=== PATIENT | male | born 1945 | race Caucasian/White ===

== ENCOUNTER 2016-10-17 09:10 | Day surgery (SDC) | payer MEDICARE, OTHER ==
[2016-10-12 18:21] LABS: HEMATOCRIT 46.6 % (40.0-51.0); HEMOGLOBIN 15.6 g/dL (13.6-17.8)
[2016-10-12 18:42] LABS: A/G RATIO 1.7 (0.7-1.9); ALBUMIN 4.4 G/DL (3.5-5.0); ALKALINE PHOSPHATASE 88 U/L (45-117); BUN (BLOOD UREA NITROGEN) 14 MG/DL (6-23); CHLORIDE, SERUM 108 MMOL/L (96-112); CO2 (CARBON DIOXIDE) 27 MMOL/L (24-34); CREATININE 1.31 MG/DL (0.70-1.30); GFR AFRICAN AMERICAN 63 ML/MIN (>=60); GFR NON AFRICAN AMERICAN 54 ML/MIN (>=60); GLOBULIN 2.6 G/DL (2.5-4.1); GLUCOSE, SERUM 83 MG/DL (60-99); POTASSIUM, SERUM 4.4 MMOL/L (3.5-5.3); SGOT(AST) 36 U/L (5-40); SGPT(ALT) 36 U/L (5-65); SODIUM, SERUM 142 MMOL/L (135-148); TOTAL BILIRUBIN 0.7 MG/DL (0-1.2)
--- NOTE | ~2016-10-17 | OP ---
Record Of Operation [facility] [address] [place]. [address] NAME: EDELMIRA BOSTON : 45 STATUS : [facility]#: [id number] AGE: 71 ADM/REG DATE : 10/17/16 MR#: [id number] REPORT SERV DATE: 10/19/16 DICTATED BY: ANTONIO CHUA DATE: 10/19/16 REPORT STATUS : Draft TRANSCRIBED BY: MODL DATE: 10/19/16 DATE OF PROCEDURE: 10/17/2016 PREOPERATIVE DIAGNOSES: 1. Recurrent direct and indirect right inguinal hernia. 2. Left indirect and direct inguinal hernia. PROCEDURES: 1. Laparoscopic reduction and mesh patch repair of left inguinal hernia. 2. Attempted laparoscopic followed by open repair of right inguinal hernia. DESCRIPTION OF OPERATIVE PROCEDURE: The patient was brought to the operating suite, placed in supine position, underwent satisfactory general endotracheal anesthesia without incident. The skin of the abdomen was scrubbed, prepped, and draped in usual sterile fashion. 0.5% Marcaine with epinephrine was utilized as supplemental local anesthesia at intended trocar sites. Initially, an infraumbilical incision was performed dissecting through skin and subcutaneous tissue to the umbilical fascia. Inferolateral retraction to the left exposed the medial aspect of the left anterior rectus sheath. This was incised longitudinally and the rectus muscle was identified and retracted laterally exposing the left posterior rectus sheath. A preperitoneal dissection balloon was inserted posterior to the left rectus muscle to the level of pubic tubercle. It was then insufflated under direct camera visualization creating a preperitoneal dissection plane predominantly on the left and partially on the right. The patient had previously had a laparoscopic right inguinal hernia repair using a MINNIE approach in [place], [place] about 15 or 20 years ago. After completion a preperitoneal dissection on the left, the dissection balloon was replaced with a structural balloon and CO2 was insufflated into the preperitoneal space. Two additional 5 mm trocars were established in the infraumbilical midline under direct visualization. As previously stated, dissection was hampered on the right due to the piece of what appeared to be polyester mesh over Hesselbach's triangle. Therefore, I initially approached the left side and completing the dissection of preperitoneal space, skeletonizing the inferior epigastric vessels, Hesselbach's triangle and the cord structures. The patient was noted to have both a direct defect medial to the inferior epigastric vessels and then indirect protrusion of preperitoneal fat through the internal ring, this was reduced. A piece of Bard 3DMax polypropylene mesh, size large, oriented left was utilized. It was placed in local anesthesia, rolled up, and placed over the inguinal canal covering Hesselbach triangle, inferior epigastric vessels, and the internal ring, allowing the cord structures to egress below the lower edge of the mesh. Multiple firings of the 5 mm helical SorbaFix stapler were utilized to plicate the mesh in position. Hemostasis was assured. Record Of Operation [facility] [address] [place]. [address] NAME: EDELMIRA BOSTON : 45 STATUS : [facility] PAT#: [id number] AGE: 71 ADM/REG DATE : 10/17/16 MR#: [id number] REPORT SERV DATE: 10/19/16 DICTATED BY: ANTONIO CHUA DATE: 10/19/16 REPORT STATUS : Draft TRANSCRIBED BY: AMBER DATE: 10/19/16 Then attention was turned to attempted dissection on the right. I spent about 30-45 minutes attempting to strip the peritoneum off the previous polyester mesh or to remove the mesh from Hesselbach's triangle and the inguinal canal. I was hampered by its adherence to the cord structures and the inferior epigastric vessels and could never adequately visualize the iliac vein and artery, therefore attempts at this were abandoned and laparoscopy was terminated. CO2 was allowed to egress from the preperitoneal space. The left anterior rectus sheath was closed with [id number] suture of 0 Vicryl, subcutaneous tissue closed at all sites with interrupted 4-0 Vicryl, running subcuticular stitch 4-0 Vicryl for the skin. Dermabond skin adhesive placed. Next, attention was turned to a traditional open repair of the right inguinal hernia. A transverse/groin crease incision was performed dissecting through the skin, subcutaneous tissue, and Janna's fascia. The external oblique aponeurosis retractors were placed. External oblique aponeurosis was opened in the direction of its fibers revealing the cord structures. The patient had a large protrusion of preperitoneal fat directly through the inguinal canal representing a direct defect and then a protrusion of preperitoneal fat through the internal ring representing an indirect defect. The fat through the ring was excised and then the preperitoneal fat protruding through the inguinal canal floor was held in temporary reduction with a pursestring suture of 3-0 Vicryl. A piece of polypropylene mesh cut in an oval shape was utilized to effect the repair. It underwent continuous direct suture to the inguinal canal starting medially at the pubic tubercle and continued inferolaterally along the shelving portion of the ilioinguinal ligament and superolaterally along the aponeurosis transverse abdominis musculature. At the level of the internal ring, the mesh was slit and the two "tails" of the mesh were sutured circumferential lateral to the ring and then to one another and they were trimmed. 0.5% Marcaine with epinephrine was instilled into the inguinal canal floor. The Sharif drain that had been used to encircle the cord structures were removed, the cord was placed back on top of the mesh, and the external oblique aponeurosis was closed over the cord structures and the repair mesh using running locking 3-0 Vicryl. Following this further, 0.5% Marcaine with epinephrine was instilled in the inguinal canal floor and a two-layer closure of Janna's fascia and subcutaneous tissues with running 3-0 Vicryl was performed, following which a running subcuticular stitch of 4-0 Vicryl for the skin and Dermabond skin adhesive. The patient tolerated both procedures well. He was returned to PACU in stable condition. At the termination of the procedure, sponge, needle, lap, and instrument counts were correct x3. ESTIMATED BLOOD LOSS: 20 mL. LOKI/AMBER Record Of [place] [id number] [place]. [address] NAME: EDELMIRA BOSTON : 45 STATUS : [facility]#: [id number] AGE: 71 ADM/REG DATE : 10/17/16 MR#: [id number] REPORT SERV DATE: 10/19/16 DICTATED BY: ANTONIO CHUA DATE: 10/19/16 REPORT STATUS : Draft TRANSCRIBED BY: AMBER DATE: 10/19/16 Antonio Chua M.D. / [id number] CC: Gabi Valdez M.D.
[~2016-10-17 09:10] MED LIST: ACET500CAP PO; AMIODIPINE; ASAB PO; MULTIPLE VIT PO; NORV25 PO; NORV5 PO; PLAVIX PO; QUESTRAN PO; RANITIDINE300 MG PO; TRICOR48 PO; WELCHOL 625 MG625 MG PO; [UNRECOGNIZED DRUG - OTHER]
== END 2016-10-17 18:52 | disposition home or self-care (01) ==
LOC: SDC 09:10
PROVIDERS: Specialist
PROC: 0YU50JZ Supplement Right Inguinal Region with Synthetic Substitute, Open Approach (ICD-10-PCS; 2016-10-17)
PROC: 0YU64JZ Supplement Left Inguinal Region with Synthetic Substitute, Percutaneous Endoscopic Approach (ICD-10-PCS; principal; 2016-10-17 10:30)
DX: K40.91 Unilateral inguinal hernia, without obstruction or gangrene, recurrent (principal); K40.90 Unilateral inguinal hernia, without obstruction or gangrene, not specified as recurrent; K21.9 Gastro-esophageal reflux disease without esophagitis; I10 Essential (primary) hypertension; E78.00 Pure hypercholesterolemia, unspecified; N40.0 Benign prostatic hyperplasia without lower urinary tract symptoms; Z86.73 Personal history of transient ischemic attack (TIA), and cerebral infarction without residual deficits; Z79.02 Long term (current) use of antithrombotics/antiplatelets; Z79.899 Other long term (current) drug therapy; Z90.89 Acquired absence of other organs; Z90.49 Acquired absence of other specified parts of digestive tract; Z98.890 Other specified postprocedural states; Z86.010 Personal history of colon polyps; Z85.820 Personal history of malignant melanoma of skin; Z92.21 Personal history of antineoplastic chemotherapy
CPT/HCPCS: 36415; 80053; 85014; 85018; 93005; C1726; C1781; J0690; J1170; J1885; J2250; J2370; J2405; J2710; J3010